=== PATIENT | female | born 1980 | race Caucasian/White ===

== ENCOUNTER 2023-05-27 13:19 | Inpatient (IN) | payer OTHER, SELFPAY ==
--- NOTE | 2023-05-27 | ECG_ITS ---
Test Reason : MED CLEARANCE Blood Pressure : / mmHG Vent. Rate : 059 BPM Atrial Rate : 059 BPM P-R Int : 142 ms QRS Dur : 078 ms QT Int : 428 ms P-R-T Axes : 080 058 042 degrees QTc Int : 423 ms Sinus bradycardia Possible Left atrial enlargement Borderline ECG No previous ECGs available Referred By: Connie Ferris Electronically Signed By:JALEN MUNOZ
--- NOTE | 2023-05-27 13:26 | ED_ITS ---
HPI - General Adult General Chief complaint: Psychiatric Symptoms Stated complaint: Mental crisis Time Seen by Provider: 05/27/23 17:39 Source: patient Mode of arrival: ambulatory Limitations: no limitations History of Present Illness HPI narrative: Patient is a 42 year old female who presents emergency department reporting increased anxiety. She has not been taking her medications for many months now. She feels as though she requires inpatient treatment at this time. She reports increased stressors, she is currently homeless and does not have anywhere to go. Patient's son was present during initial evaluation who expressed concerns that she had been responding to internal stimuli, she denies to me any auditory or visual hallucinations. She denies any suicidal or homicidal ideations. She is calm and cooperative. Denies any physical complaints. Related Data Home Medications Medication Instructions Recorded Confirmed No Known Home Meds 05/27/23 05/27/23 Allergies Allergy/AdvReac Type Severity Reaction Status Date / Time penicillin V Allergy Unknown Rash Verified 05/27/23 13:26 Review of Systems 2 Review of Systems: Yes all other systems are reviewed and are negative PMFSH Past Medical History Attestation statement: The following information was validated with the patient. Source: old records reviewed Social History Social History Advance Directives: No Advance Directives Information Provided: No Healthcare Proxy: No Guardian: Yes Physical Exam ED Vital Signs: Vital Signs - 24 hr 05/27/23 13:27 05/27/23 18:44 Temperature 97.9 F Pulse Rate 91 Respiratory Rate 18 16 Blood Pressure 143/76 H Pulse Oximetry 98 Oxygen Delivery Method Room Air BMI result Body Mass Index 28.5 Appearance: Alert.?Oriented to person, place and time. No acute distress.?Normal affect. Eyes: Pupils equal, round and reactive to light.? ENT: Pharynx normal.?? Neck: Normal inspection.? Neck supple.?? CVS: Heart sounds normal. Normal heart rate and rhythm.? Pulses normal.?? Respiratory: No respiratory distress.? Lung sounds clear to auscultation bilaterally?? Abdomen: Soft and non-tender. Normoactive bowel sounds. Skin: Skin warm and dry.? Normal skin color.? ?? Extremities: No lower extremity edema.? Neuro: Moves all extremities spontaneously. Sensation intact bilaterally. CN II- XII intact. No focal neuro deficits. Ambulates with normal steady gait. Course Course Course Narrative: This is a rapid medical exam: Additional HPI, ROS, PE not included below will be deferred to primary provider. Patient is a 42-year-old female with history of bipolar and schizophrenia presenting to the emergency department with complaint of anxiety. States has been off her medications for the past few months. Patient denies suicidal or homicidal ideation. Patient denies auditory or visual hallucinations. Son states that she is looking for inpatient treatment. Son states that patient has been responding to internal stimuli. He states that patient is currently homeless, he paid for her to stay at a hotel but only had enough for 3 nights. Reevaluation(s) Reevaluation #1: CBC is without leukocytosis or anemia. CMP is overall unremarkable, random glucose of 320, urinalysis revealing glucosuria and trace ketones, also consistent with urinary tract infection. will add on A1c, and treat UTI with cefuroxime Time: 19:16 Reevaluation #2: A1c 8.8, will initiate metformin 500 mg by mouth twice daily, new onset TYpe 2 DM. Patient was evaluated by CARE team who at this time recommends inpatient psych bed search. She is placed in physician observation so the bed search can ensue. She is calm and cooperative. No acute distress. Vitals are stable. Time: 20:33 Medications Administered Generic Name Dose Route Start Last Admin Trade Name Freq PRN Reason Stop Dose Admin Cefuroxime Axetil 250 mg 05/27/23 21:00 05/27/23 21:08 Cefuroxime Axetil 250 Mg Tablet PO 06/03/23 09:01 250 mg BID GREGORIO Administration Metformin HCl 500 mg 05/27/23 21:00 05/27/23 21:08 Metformin Hcl 500 Mg Tablet PO 500 mg BID GREGORIO Administration Medical Decision Making Medical Decision Making MDM Narrative: Patient is a 42 old female who presents to the emergency department with increasing anxiety as per HPI. At the time my examination she is calm and cooperative. No physical complaints and her physical examination is benign. She has not been taking her medications for many months. Plan to obtain basic labs for medical clearance and refer to care team for further evaluation and determination as to whether inpatient psychiatric services are warranted at this time. Differential Diagnosis Differential Diagnoses: The differential diagnosis associated with the presentation includes (Anxiety, depression, substance use disorder) Admission/Observation Consideration of admission/observation: Escalation of care including admission/observation considered (See narrative above) Consult Healthcare Provider Management of the patient was discussed with: Behavioral Health Provider (CARE team) Lab Data MDM Lab Attestation statement: I reviewed the patient's lab results. 05/27/23 18:37 05/27/23 18:37 Labs: Lab Results 05/27/23 05/27/23 05/27/23 Range/Units 18:04 18:37 20:55 WBC 10.1 (4.8-10.8) X10*3/uL RBC 5.08 (4.20-5.50) X10*6/uL Hgb 14.9 (12.0-16.0) g/dl Hct 44.5 (37.0-47.0) % MCV 87.6 (80.0-98.0) fL MCH 29.3 (27.0-33.0) pg MCHC 33.5 (31.0-35.0) g/dl RDW 12.3 (11.0-16.0) % Plt Count 340 (160-400) X10*3/uL MPV 9.7 (9.4-12.3) fL Immature Gran % (Auto) 0.2 (0.0-0.4) % Neut % (Auto) 55.0 (45-73) % Lymph % (Auto) 38.1 (20-40) % [place] % (Auto) 4.9 (2-11) % Eos % (Auto) 1.1 (0-4) % Baso % (Auto) 0.7 (0-2) % Lymph # (Auto) 3.9 (1.2-4.9) X10*3/uL [place] # (Auto) 0.5 (0.1-1.2) X10*3/uL Eos # (Auto) 0.1 (0.0-0.4) X10*3/uL Baso # (Auto) 0.1 (0.0-0.2) X10*3/uL Abs Immat Gran (auto) 0.02 (0.00-0.03) X10*3/uL Absolute Neuts (auto) 5.6 (2.0-8.3) x10*3/uL Absolute Nucleated RBC 0.000 (0.0-0.012) X10*3/uL Nucleated RBC % (auto) 0.0 (0.0-0.2) /100WBC Sodium 138 (135-145) mmol/L Potassium 3.9 (3.3-5.1) mmol/L Chloride 101 (96-108) mmol/L Carbon Dioxide 27 (22-29) mmol/L Anion Gap 14 (12-20) BUN 11 (9-16) mg/dL Creatinine 0.77 (0.5-1.4) mg/dL Estim Creat Clear Calc 85.9 Estimated GFR > 60 Random Glucose 320 H (60-115) mg/dL Estimat Average Glucose 206 mg/dL Hemoglobin A1c % 8.8 H (<6.0) % Calcium 9.6 (8.4-10.2) mg/dL Total Bilirubin 0.1 (0.0-1.0) mg/dL AST 10 (5-31) U/L ALT 8 (0-31) U/L Alkaline Phosphatase 98 (39-117) U/L Total Protein 8.2 H (6.5-8.0) g/dL Albumin 4.4 (3.5-5.0) g/dL Urine Color Yellow Urine Appearance Clear Urine pH 6.0 (5.0-9.0) Ur Specific [place] >= 1.030 H (1.005-1.025) Urine Protein Negative (Neg-Trace) mg/dL Urine Glucose (UA) >=1000 H (Negative) mg/dL Urine Ketones Trace (Negative) mg/dL Urine Blood Negative (Negative) Urine Nitrite Positive H (Negative) Ur Leukocyte Esterase Trace H (Negative) Urine RBC 0-2 (0-2) /HPF Urine WBC >50 H (0-5) /HPF Ur Squamous Epith Cells 0-2 (0-2) /HPF Urine Bacteria 4+ (None Seen) Hyaline Casts 0-2 (0-2) /LPF Urine Test NEGATIVE (NEGATIVE) Salicylates < 5.0 L (15-30) mg/dL Urine Opiates Screen Not Detected (Not Detect) Urine Fentanyl Screen Not Detected (Not Detect) Acetaminophen < 3 (<30) mcg/mL Ur Barbiturates Screen Not Detected (Not Detect) Ur Phencyclidine Scrn Not Detected (Not Detect) Ur Amphetamines Screen Not Detected (Not Detect) U Benzodiazepines Scrn Not Detected (Not Detect) Urine Cocaine Screen POSITIVE H (Not Detect) U Marijuana (THC) Screen POSITIVE H (Not Detect) Ethyl Alcohol < 10 mg/dL COVID-19 (SHANITA) Negative (Negative) COVID-19 Clin Com See Note Social Determinants Patient?s care significantly limited by Social Determinants of Health including: Inadequate housing and Other Social Determinant of Health Discharge Plan Discharge Clinical Impression: Acute anxiety, Urinary tract infection, Type 2 diabetes mellitus Patient Disposition: Still a Patient Interventions: [place]-Suicide Risk Severity Scale Last Done: 05/27/23 18:44 Admission Worksheet (ED) Last Done: 05/28/23 00:00
[2023-05-27 13:27] VITALS: BP 143/76; PULSE 91; RESP 18; TEMP 36.6; O2SAT 98; BMI 28.5
--- NOTE | 2023-05-27 18:02 | PC.NURSE ---
PT experiencing anxiety in community and self presented to emergency dept. PT does not appear anxious. Watching TV, requesting food. Agreeable to filter changer. Reports she is homeless and doesn't have anyplace to go. Per triage note son reports she has been responding to internal stimuli. PT currently denies any AH/VH and does not appear to be responding to any stimuli, PT also denies SI/HI. Labs pending.
[2023-05-27 18:21] LABS: Appearance Urine Clear; Color Urine Yellow; Glucose Urine UA >=1000 mg/dL (Negative); Leukocyte Esterase Urine Trace (Negative); Nitrite Urine Positive (Negative); Specific Gravity - Urine >= 1.030 (1.005-1.025); UMIC TRIGGER UACC YES; Urine Blood Negative (Negative); Urine Ketones Trace mg/dL (Negative); Urine Protein Negative (Neg-Trace)
[2023-05-27 18:22] LABS: UPreg QC Valid YES; Urine Pregnancy NEGATIVE (NEGATIVE)
[2023-05-27 18:24] LABS: Bacteria Urine 4+ (None Seen); Hyaline Casts Urine 0-2 /LPF (0-2); RBC Urine 0-2 /HPF (0-2); Squamous Epithelial Cell Urine 0-2 /HPF (0-2); UACC Culture Trigger YES; WBC Urine >50 /HPF (0-5)
[2023-05-27 18:27] LABS: Amphetamine Screen Urine Not Detected (Not Detect); Barbiturates, Urine Not Detected (Not Detect); Benzodiazepines Screen Urine Not Detected (Not Detect); Cannabinoid Screen Urine POSITIVE (Not Detect); Cocaine Screen Urine POSITIVE (Not Detect); Fentanyl, urine Not Detected (Not Detect); Opiate Screen Urine Not Detected (Not Detect); Phencyclidine Screen Urine Not Detected (Not Detect)
[2023-05-27 18:42] LABS: MANUAL DIFF FLAG NO
[2023-05-27 18:44] VITALS: RESP 16
[2023-05-27 18:44] LABS: Basophils Absolute Auto 0.1 X10*3/uL (0.0-0.2); Basophils Percent Auto 0.7 % (0-2); Eosinophils Absolute Auto 0.1 X10*3/uL (0.0-0.4); Eosinophils Percent Auto 1.1 % (0-4); Hematocrit 44.5 % (37.0-47.0); Hemoglobin 14.9 g/dl (12.0-16.0); Imm Gran Abs Auto 0.02 X10*3/uL (0.00-0.03); Imm Gran Pct Auto 0.2 % (0.0-0.4); Lymphocytes Absolute Auto 3.9 X10*3/uL (1.2-4.9); Lymphocytes Percent Auto 38.1 % (20-40); Mean Corpuscular HGB Conc 33.5 g/dl (31.0-35.0); Mean Corpuscular Hemoglobin 29.3 pg (27.0-33.0); Mean Corpuscular Volume 87.6 fL (80.0-98.0); Mean Platelet Volume 9.7 fL (9.4-12.3); Monocytes Absolute Auto 0.5 X10*3/uL (0.1-1.2); Monocytes Percent Auto 4.9 % (2-11); Neutrophils Absolute Auto 5.6 x10*3/uL (2.0-8.3); Platelet Count 340 X10*3/uL (160-400); Red Blood Count 5.08 X10*6/uL (4.20-5.50); Red Cell Distribution Width 12.3 % (11.0-16.0); White Blood Count 10.1 X10*3/uL (4.8-10.8)
[2023-05-27 19:01] LABS: Acetaminophen LAB < 3 mcg/mL (<30); Salicylate < 5.0 mg/dL (15-30)
[2023-05-27 19:08] LABS: Alanine Aminotransferase 8 U/L (0-31); Albumin Level 4.4 g/dL (3.5-5.0); Alkaline Phosphatase 98 U/L (39-117); Anion Gap 14 (12-20); Aspartate Amino Transferase 10 U/L (5-31); Bilirubin Total 0.1 mg/dL (0.0-1.0); Blood Urea Nitrogen 11 mg/dL (9-16); Calcium 9.6 mg/dL (8.4-10.2); Carbon Dioxide 27 mmol/L (22-29); Chloride 101 mmol/L (96-108); Creatinine Clr Calc Pharmacy 85.9; Estimated Glomerular Filt Rate > 60; Ethanol < 10 mg/dL; Glucose Random 320 mg/dL (60-115); Potassium 3.9 mmol/L (3.3-5.1); Sodium 138 mmol/L (135-145); Total Protein 8.2 g/dL (6.5-8.0)
[2023-05-27 19:51] LABS: Estimated Average Glucose 206 mg/dL; Hemoglobin A1c % 8.8 % (<6.0)
--- NOTE | 2023-05-27 20:08 | PC.NURSE ---
Assumed care of pt. CARE team at bedside on this RN arrival to unit, pt calm and cooperative during conversation. No acute distress noted at this time. Continuing plan of care.
[2023-05-27] MEDS: metFORMIN HCl 500 MG TABLET PO (21:08)
[2023-05-27] MEDS: cefuroxime axetiL 250 MG TABLET PO (21:08)
[2023-05-27 21:13] LABS: COVID-19 Test Negative (Negative); IDNOW Serial# 08D9AD1C
--- NOTE | 2023-05-27 23:18 | PC.NURSE ---
Pt remains lying on stretcher, eyes closed, respirations even and unlabored, no acute distress. Continuing plan of care.
[2023-05-28 01:00] VITALS: BP 118/73; PULSE 56; RESP 18; TEMP 36.6; O2SAT 96
[2023-05-28] MEDS: Acetaminophen 325 MG TABLET 650 MG PO (01:36)
[2023-05-28] MEDS: hydrOXYzine HCL 25 MG TABLET PO ×2 (01:36→20:15)
[2023-05-28 02:01] VITALS: BMI 28.3
[2023-05-28] MEDS: Nicotine Polacrilex 2 MG GUM 4 MG BUCCAL ×2 (02:17→12:16)
--- NOTE | 2023-05-28 03:18 | PC.ADMIT ---
Patient is a 42 year old female admitted to from [facility] on 05/28/23 at 0100 on a CV for increased anxiety. She reports having one prior inpatient hospitalization on in 2004. Patient has been homeless for the past seven months. She has also been noncompliant with medication during that time. Patient reports using crack/cocaine at times. Patient is a current everyday smoker, reports smoking 3-5 cigarettes per day. Denies alcohol use. Patient toxicology positive for cocaine and THC. Patient also tested positive for UTI for which she is receiving ceftin. Upon arrival to the unit, patient alert and oriented to person and place, but believed she was at [facility]. Patient cooperative with admission process, skin and contraband check completed, EMIGDIO's signed. Coperative throughout admission process.Patient denies SI/HI/AH/VH, she appears to be responding to internal stimuli. Patient is denying flu shot at this time.
[2023-05-28 06:00] VITALS: BP 131/62; PULSE 62; RESP 18; O2SAT 99
[2023-05-28] MEDS: cefuroxime axetiL 250 MG TABLET PO ×2 (08:34→20:15)
[2023-05-28] MEDS: metFORMIN HCl 500 MG TABLET PO ×2 (08:34→20:15)
[2023-05-28 09:15] LABS: Estimated Average Glucose 209 mg/dL; Hemoglobin A1c % 8.9 % (<6.0)
[2023-05-28 09:16] LABS: Cholesterol 197 mg/dL (<200); HDL Cholesterol 34 mg/dL (>40); LDL Cholesterol Calculated 115 mg/dL (<100); Triglycerides 243 mg/dL (<150)
[2023-05-28 16:14] VITALS: BP 123/69; PULSE 70; TEMP 36.9; O2SAT 96
--- NOTE | 2023-05-28 17:18 | P.HPPS_ITS ---
HPI Date of Service: 05/28/23 Chief Complaint: Psychosis/agitation Sources of Information: patient interviewed, chart reviewed and crisis/core team assessment reviewed HPI Subjective Notes: Chow Warning and Conditional Voluntary Healthcare Proxy: No Guardianship: Yes (Robertson in place. Expires 06/30/23) Medical Problems Affecting Mental Status: No Narrative: 42 yo female, history of bipolar disorder with psychosis, who reportedly has been missing for the past seven months. Son reports pt had a break and just walked away from her life, including Section 8 housing, [facility], OP Providers. She has been homeless and on the street. She exhibits pressure of speech, perceptual alterations and anxiety. She reports crack/cocaine use. Possible precipitants- 9 yo son removed by DCF Pt reports she has a Robertson, she believes she was taking a mood stabilizer, abilify and cogentin. She agrees to re-start a regime. She will consider a vitamin regime as well A1c 8.8 Glucose 320 She is unsure if there is a DM history Past Psychiatric History: IP: Reports - [place] [facility] [place] connected Trials: Invega, Trileptal, Abilify Aik's order- expires 06/30/23-Invega to 12 mg daily, Abilify to 30 mg daily; Alternatives: Sustenna to 234 mg q 4 weeks, Haldol to 30 mg day or 300 mg decanoate every 4 weeks. Medical Evaluation Reviewed: Yes [facility] Medical History (Updated 05/29/23 @ 18:58 by Sonia Song, SENIOR MECHANICAL PROJECT ENGINEER) Cocaine use disorder Schizoaffective disorder, bipolar type Narrative: DM Family History: Yes, I think so Social History: Homeless Two sons, age 24 and 9-who is with his father Substance History: Cocaine use for 7 months, Cannabis Trauma History: Affirms Diagnostics Vital Signs (24Hr): Vital Signs - 24 hr 05/27/23 18:44 05/28/23 01:00 05/28/23 06:00 Temperature 97.8 F Pulse Rate 56 62 Respiratory Rate 16 18 18 Blood Pressure 118/73 131/62 Pulse Oximetry 96 99 Oxygen Delivery Method Room Air Room Air 05/28/23 16:14 Temperature 98.5 F Pulse Rate 70 Respiratory Rate Blood Pressure 123/69 Pulse Oximetry 96 Oxygen Delivery Method Room Air BMI result Body Mass Index 28.3 Labs 05/27/23 18:37 05/27/23 18:37 Labs: Laboratory Results - last 48 hr 05/27/23 05/27/23 05/27/23 18:04 18:37 20:55 WBC 10.1 RBC 5.08 Hgb 14.9 Hct 44.5 MCV 87.6 MCH 29.3 MCHC 33.5 RDW 12.3 Plt Count 340 MPV 9.7 Immature Gran % (Auto) 0.2 Neut % (Auto) 55.0 Lymph % (Auto) 38.1 [place] % (Auto) 4.9 Eos % (Auto) 1.1 Baso % (Auto) 0.7 Lymph # (Auto) 3.9 [place] # (Auto) 0.5 Eos # (Auto) 0.1 Baso # (Auto) 0.1 Abs Immat Gran (auto) 0.02 Absolute Neuts (auto) 5.6 Absolute Nucleated RBC 0.000 Nucleated RBC % (auto) 0.0 Sodium 138 Potassium 3.9 Chloride 101 Carbon Dioxide 27 Anion Gap 14 BUN 11 Creatinine 0.77 Estim Creat Clear Calc 85.9 Estimated GFR > 60 Random Glucose 320 H Estimat Average Glucose 206 Hemoglobin A1c % 8.8 H Calcium 9.6 Total Bilirubin 0.1 AST 10 ALT 8 Alkaline Phosphatase 98 Total Protein 8.2 H Albumin 4.4 Triglycerides Cholesterol LDL Cholesterol, Calc HDL Cholesterol Urine Color Yellow Urine Appearance Clear Urine pH 6.0 Ur Specific [place] >= 1.030 H Urine Protein Negative Urine Glucose (UA) >=1000 H Urine Ketones Trace Urine Blood Negative Urine Nitrite Positive H Ur Leukocyte Esterase Trace H Urine RBC 0-2 Urine WBC >50 H Ur Squamous Epith Cells 0-2 Urine Bacteria 4+ Hyaline Casts 0-2 Urine Test NEGATIVE Salicylates < 5.0 L Urine Opiates Screen Not Detected Urine Fentanyl Screen Not Detected Acetaminophen < 3 Ur Barbiturates Screen Not Detected Ur Phencyclidine Scrn Not Detected Ur Amphetamines Screen Not Detected U Benzodiazepines Scrn Not Detected Urine Cocaine Screen POSITIVE H U Marijuana (THC) Screen POSITIVE H Ethyl Alcohol < 10 COVID-19 (SHANITA) Negative COVID-19 Clin Com See Note 05/28/23 08:33 WBC RBC Hgb Hct MCV MCH MCHC RDW Plt Count MPV Immature Gran % (Auto) Neut % (Auto) Lymph % (Auto) [place] % (Auto) Eos % (Auto) Baso % (Auto) Lymph # (Auto) [place] # (Auto) Eos # (Auto) Baso # (Auto) Abs Immat Gran (auto) Absolute Neuts (auto) Absolute Nucleated RBC Nucleated RBC % (auto) Sodium Potassium Chloride Carbon Dioxide Anion Gap BUN Creatinine Estim Creat Clear Calc Estimated GFR Random Glucose Estimat Average Glucose 209 Hemoglobin A1c % 8.9 H Calcium Total Bilirubin AST ALT Alkaline Phosphatase Total Protein Albumin Triglycerides 243 H Cholesterol 197 LDL Cholesterol, Calc 115 H HDL Cholesterol 34 L Urine Color Urine Appearance Urine pH Ur Specific [place] Urine Protein Urine Glucose (UA) Urine Ketones Urine Blood Urine Nitrite Ur Leukocyte Esterase Urine RBC Urine WBC Ur Squamous Epith Cells Urine Bacteria Hyaline Casts Urine Test Salicylates Urine Opiates Screen Urine Fentanyl Screen Acetaminophen Ur Barbiturates Screen Ur Phencyclidine Scrn Ur Amphetamines Screen U Benzodiazepines Scrn Urine Cocaine Screen U Marijuana (THC) Screen Ethyl Alcohol COVID-19 (SHANITA) COVID-19 Clin Com Meds/Allergies Meds Home Medications Medication Instructions Recorded Confirmed Type No Known Home Meds 05/27/23 05/27/23 History Allergies Allergies Allergy/AdvReac Type Severity Reaction Status Date / Time penicillin V Allergy Unknown Rash Verified 05/27/23 13:26 Mental Status Exam Mental Status Exam Patient Appearance: Fatigued and Disheveled Patient Orientation: Person, Place (?Prov) and Situation Level of Consciousness: Sedated Patient Behavior: Talkative, Fatigued, Distractible and Good Eye Contact Mood Description: Flat Affect Description: Flat Patient Cognition Impaired: No Ability to Follow Directions: Fair Speech Pattern: Spontaneous Speech Memory Description: Remote Impaired Hallucinations: Auditory Delusions: Paranoid Ideation and Present Perceptual Disturbances: Depersonalization and Derealization Thought Process: Distracted and Rumination Thought Content: positive for Circumstantial, positive for Tangential and positive for Suicidal Ideation ( I wish ) Depressive Symptoms: Increased Anxiety, Feelings of Worthlessness, Hopelessness, Unhappiness, Increased Fatigue, Thoughts of /Suicide and Low Self Esteem Judgement: Poor Assessment & Plan Assessment & Plan (1) Schizoaffective disorder, bipolar type: Status: Acute Code(s): F25.0 - Schizoaffective disorder, bipolar type (2) Cocaine use disorder: Status: Acute Code(s): F14.10 - Cocaine abuse, uncomplicated (3) Type 2 diabetes mellitus: Status: Acute Code(s): E11.9 - Type 2 diabetes mellitus without complications Plan 42 yo female, hx of schizoaffective disorder, bipolar type, missing from the community for ~7 months, recently found by her son who brought her to the ER for evaluation. Pt is agreeable to re-start treatment, has a Robertson order for meds and is wanting to stop cocaine, which she has been using for the past 6.5-7 months. Pt responding to internal stimuli, believes she is in [facility] and today is a weak historian. Plan: Re-establish regime-Abilify, Invega Collateral contact [place] building Aftercare planning. Patient educated on: medication risk/benefits and therapeutic strategies Informed Consent: understands and further education needed Reason for continued inpatient stay Substantial Risk for: rapid decompensation Statement Statement: I have reviewed the history and physical and performed a pertinent examination on my patient. No changes have occurred unless specified. If the History and Physical was not performed prior to admission, the Hospitalist's service will be consulted for completing the admission physical. Time Spent With Patient Time: Total time managing care of this patient today ____ minutes.
[2023-05-28] MEDS: OLANZapine 5 MG TABLET PO (20:15)
[2023-05-28] MEDS: traZODone HCL 50 MG TABLET PO (20:16)
[2023-05-29 07:55] VITALS: BP 104/51; PULSE 70; RESP 16; TEMP 37; O2SAT 97
[2023-05-29] MEDS: metFORMIN HCl 500 MG TABLET PO ×2 (09:05→20:24)
[2023-05-29] MEDS: ARIPiprazole 5 MG TABLET PO (09:05)
[2023-05-29] MEDS: cefuroxime axetiL 250 MG TABLET PO ×2 (09:05→20:24)
[2023-05-29] MEDS: Paliperidone ER 3 MG TAB.ER.24 PO (09:05)
[2023-05-29 16:16] VITALS: BP 128/64; PULSE 80; TEMP 36.3; O2SAT 96
--- NOTE | 2023-05-29 19:02 | HO.PSYCHPN ---
Subjective Subjective Date of Service: 05/29/23 Reason For Visit: Psychosis/agitation Subjective Notes: Conditional Voluntary Healthcare Proxy: No Guardianship: Yes Medical Problems Affecting Mental Status: No Interim History: Pt reports she is OK . She remains in bed, a poor historian. States she is tolerating medications without adverse effects. Reports exhaustion and needing to sleep. Agrees to a vitamin regime. Asks tw, why is everyone so nice to me, I feel like nothing. Attempted to offer support and encouragement-pt tearful. Medication Compliance: Yes Side effects from medications: No Attending Groups: No Review of Systems Acute medical concerns: No Medical Review of Systems: unchanged Review of Systems Review of Systems Yes Unobtainable due to mental status Mental Status Exam Mental Status Exam Patient Appearance: Fatigued and Disheveled Patient Orientation: Person, Place (?Prov) and Situation Level of Consciousness: Sedated Patient Behavior: Talkative, Fatigued, Distractible and Good Eye Contact Mood Description: Flat Affect Description: Flat Patient Cognition Impaired: No Ability to Follow Directions: Fair Speech Pattern: Spontaneous Speech Memory Description: Remote Impaired Hallucinations: Auditory Delusions: Paranoid Ideation and Present Perceptual Disturbances: Depersonalization and Derealization Thought Process: Distracted and Rumination Thought Content: positive for Circumstantial, positive for Tangential and positive for Suicidal Ideation ( I wish ) Depressive Symptoms: Increased Anxiety, Feelings of Worthlessness, Hopelessness, Unhappiness, Increased Fatigue, Thoughts of /Suicide and Low Self Esteem Judgement: Poor Diagnostics Vital Signs (24Hr): Vital Signs - 24 hr 05/29/23 07:55 05/29/23 16:16 Temperature 98.6 F 97.3 F Pulse Rate 70 80 Respiratory Rate 16 Blood Pressure 104/51 L 128/64 Pulse Oximetry 97 96 Oxygen Delivery Method Room Air Room Air BMI result Body Mass Index 28.3 Labs 05/27/23 18:37 05/27/23 18:37 Labs: Laboratory Results - last 48 hr 05/27/23 05/27/23 05/28/23 18:37 20:55 08:33 Sodium 138 Potassium 3.9 Chloride 101 Carbon Dioxide 27 Anion Gap 14 BUN 11 Creatinine 0.77 Estim Creat Clear Calc 85.9 Estimated GFR > 60 Random Glucose 320 H Estimat Average Glucose 206 209 Hemoglobin A1c % 8.8 H 8.9 H Calcium 9.6 Total Bilirubin 0.1 AST 10 ALT 8 Alkaline Phosphatase 98 Total Protein 8.2 H Albumin 4.4 Triglycerides 243 H Cholesterol 197 LDL Cholesterol, Calc 115 H HDL Cholesterol 34 L Ethyl Alcohol < 10 COVID-19 (SHANITA) Negative COVID-19 Clin Com See Note Medications Medications Current Medications Acetaminophen (Acetaminophen 325 Mg Tablet) 650 mg PO Q6H PRN PRN Reason: Headache/Pain Mild Scale (1-3) Last Admin: 05/28/23 01:36 Dose: 650 mg Al Hydroxide/Mg Hydroxide (Magnesium Hydrox/Alum Hydrox 30 Ml Oral.Susp) 30 ml PO Q6H PRN PRN Reason: Heartburn/Nausea Aripiprazole (Aripiprazole 5 Mg Tablet) 5 mg PO DAILY [facility] Last Admin: 05/29/23 09:05 Dose: 5 mg Cefuroxime Axetil (Cefuroxime Axetil 250 Mg Tablet) 250 mg PO BID [facility] Stop: 06/03/23 09:01 Last Admin: 05/29/23 09:05 Dose: 250 mg Hydroxyzine HCl (Hydroxyzine Hcl 25 Mg Tablet) 25 mg PO Q6H PRN PRN Reason: Anxiety Last Admin: 05/28/23 20:15 Dose: 25 mg Magnesium Hydroxide (Milk Of Magnesia 30 Ml Oral.Susp) 30 ml PO DAILY PRN PRN Reason: Constipation Metformin HCl (Metformin Hcl 500 Mg Tablet) 500 mg PO BID [facility] Last Admin: 05/29/23 09:05 Dose: 500 mg Nicotine (Nicotine 21 Mg Patch.Td24) 21 mg TRANSDERMA DAILY PRN PRN Reason: smoking cessation Nicotine Polacrilex (Nicotine Polacrilex 2 Mg Gum) 4 mg BUCCAL Q2H PRN PRN Reason: Nicotine Cravings Last Admin: 05/28/23 12:16 Dose: 4 mg Olanzapine (Olanzapine 5 Mg Tablet) 5 mg PO TID PRN PRN Reason: Restlessness Last Admin: 05/28/23 20:15 Dose: 5 mg Paliperidone (Paliperidone Er 3 Mg Tab.Er.24) 3 mg PO DAILY [facility] Last Admin: 05/29/23 09:05 Dose: 3 mg Trazodone HCl (Trazodone Hcl 50 Mg Tablet) 50 mg PO BEDTIME MRX1 PRN PRN Reason: Insomnia Last Admin: 05/28/23 20:16 Dose: 50 mg Allergies Allergies Allergy/AdvReac Type Severity Reaction Status Date / Time penicillin V Allergy Unknown Rash Verified 05/27/23 13:26 Assessment & Plan Assessment & Plan (1) Schizoaffective disorder, bipolar type: Status: Acute Code(s): F25.0 - Schizoaffective disorder, bipolar type (2) Cocaine use disorder: Status: Acute Code(s): F14.10 - Cocaine abuse, uncomplicated (3) Type 2 diabetes mellitus: Status: Acute Code(s): E11.9 - Type 2 diabetes mellitus without complications Plan 42 yo female, hx of schizoaffective disorder, bipolar type, missing from the community for ~7 months, recently found by her son who brought her to the ER for evaluation. Pt is agreeable to re-start treatment, has a Robertson order for meds and is wanting to stop cocaine, which she has been using for the past 6.5-7 months. Pt responding to internal stimuli, believes she is in [facility] and today is a weak historian. Plan: Re-establish regime-Abilify, Invega Collateral contact [place] building Aftercare planning. 05/29/23 MVI B12 Vitamin D Trileptal 300 mg bid Patient educated on: medication risk/benefits Informed Consent: understands and further education needed Reason for continued inpatient stay Substantial Risk for: rapid decompensation and med/psych decompensation Time Spent With Patient Time: Total time managing care of this patient today ____ minutes.
[2023-05-29] MEDS: OXcarbazepine 300 MG TABLET PO (20:24)
[2023-05-29] MEDS: traZODone HCL 50 MG TABLET PO (20:24)
[2023-05-29] MEDS: hydrOXYzine HCL 25 MG TABLET PO (20:24)
[2023-05-29] MEDS: OLANZapine 5 MG TABLET PO (20:24)
[2023-05-30 06:00] VITALS: BP 115/60; PULSE 63; RESP 16; TEMP 37.8; O2SAT 97
[2023-05-30] MEDS: metFORMIN HCl 500 MG TABLET PO ×2 (08:28→22:07)
[2023-05-30] MEDS: OXcarbazepine 300 MG TABLET PO ×2 (08:28→22:07)
[2023-05-30] MEDS: Thiamine HCL 100 MG TABLET PO (08:28)
[2023-05-30] MEDS: Paliperidone ER 3 MG TAB.ER.24 PO (08:28)
[2023-05-30] MEDS: ARIPiprazole 5 MG TABLET PO (08:28)
[2023-05-30] MEDS: Multivitamin TABLET 1 TAB PO (08:28)
[2023-05-30] MEDS: Cholecalciferol (Vitamin D3) 10 MCG TABLET 20 MCG PO (08:28)
[2023-05-30] MEDS: cefuroxime axetiL 250 MG TABLET PO ×2 (08:30→22:07)
--- NOTE | 2023-05-30 09:51 | HO.PSYCHPN ---
Subjective Subjective Date of Service: 05/30/23 Reason For Visit: Psychosis/agitation Subjective Notes: Conditional Voluntary Interim History: Reviewed with . Patient reports feeling fine today. Patient stated, I just want a cigarette. I'm happy I'm getting off drugs. I don't need anything else right now . denies SI/HI/VH.AH. Medication Compliance: Yes Side effects from medications: No Review of Systems Constitutional: Reports as per HPI Eyes: Reports as per HPI Reports as per HPI Cardiovascular: Reports as per HPI Respiratory: Reports as per HPI Gastrointestinal: Reports as per HPI Genitourinary: Reports as per HPI Musculoskeletal: Reports as per HPI Skin/Breast: Reports as per HPI Reports as per HPI Psychiatric: Reports as per HPI Endocrine: Reports as per HPI Hematologic/Lymphatic: Reports as per HPI Allergic/Immunologic: Reports as per HPI Mental Status Exam Mental Status Exam Narrative: Pt is alert and oriented; behavior is cooperative and calm; dressed in casual attire; mood is described as fine ; eye contact appropriate; Speech is normal rate, volume and prosody and not pressured; thought process is organized; Thought content is on tx; denies SI/HI. There is no evidence of perceptual disturbance. Diagnostics Vital Signs (24Hr): Vital Signs - 24 hr 05/29/23 16:16 05/30/23 06:00 Temperature 97.3 F 100.1 F Pulse Rate 80 63 Respiratory Rate 16 Blood Pressure 128/64 115/60 Pulse Oximetry 96 97 Oxygen Delivery Method Room Air Room Air BMI result Body Mass Index 28.3 Labs 05/27/23 18:37 05/27/23 18:37 Medications Medications Current Medications Acetaminophen (Acetaminophen 325 Mg Tablet) 650 mg PO Q6H PRN PRN Reason: Headache/Pain Mild Scale (1-3) Last Admin: 05/28/23 01:36 Dose: 650 mg Al Hydroxide/Mg Hydroxide (Magnesium Hydrox/Alum Hydrox 30 Ml Oral.Susp) 30 ml PO Q6H PRN PRN Reason: Heartburn/Nausea Aripiprazole (Aripiprazole 5 Mg Tablet) 5 mg PO DAILY [facility] Last Admin: 05/30/23 08:28 Dose: 5 mg Cefuroxime Axetil (Cefuroxime Axetil 250 Mg Tablet) 250 mg PO BID [facility] Stop: 06/03/23 09:01 Last Admin: 12/08/23 08:30 Dose: 250 mg Hydroxyzine HCl (Hydroxyzine Hcl 25 Mg Tablet) 25 mg PO Q6H PRN PRN Reason: Anxiety Last Admin: 05/29/23 20:24 Dose: 25 mg Magnesium Hydroxide (Milk Of Magnesia 30 Ml Oral.Susp) 30 ml PO DAILY PRN PRN Reason: Constipation Metformin HCl (Metformin Hcl 500 Mg Tablet) 500 mg PO BID [facility] Last Admin: 05/30/23 08:28 Dose: 500 mg Multivitamins/Vitamin C (Multivitamin Tablet) 1 tab PO DAILY [facility] Last Admin: 05/30/23 08:28 Dose: 1 tab Nicotine (Nicotine 21 Mg Patch.Td24) 21 mg TRANSDERMA DAILY PRN PRN Reason: smoking cessation Nicotine Polacrilex (Nicotine Polacrilex 2 Mg Gum) 4 mg BUCCAL Q2H PRN PRN Reason: Nicotine Cravings Last Admin: 05/28/23 12:16 Dose: 4 mg Olanzapine (Olanzapine 5 Mg Tablet) 5 mg PO TID PRN PRN Reason: Restlessness Last Admin: 05/29/23 20:24 Dose: 5 mg Oxcarbazepine (Oxcarbazepine 300 Mg Tablet) 300 mg PO BID [facility] Last Admin: 05/30/23 08:28 Dose: 300 mg Paliperidone (Paliperidone Er 3 Mg Tab.Er.24) 3 mg PO DAILY [facility] Last Admin: 05/30/23 08:28 Dose: 3 mg Thiamine HCl (Thiamine Hcl 100 Mg Tablet) 100 mg PO DAILY [facility] Last Admin: 05/30/23 08:28 Dose: 100 mg Trazodone HCl (Trazodone Hcl 50 Mg Tablet) 50 mg PO BEDTIME MRX1 PRN PRN Reason: Insomnia Last Admin: 05/29/23 20:24 Dose: 50 mg Vitamin D (Cholecalciferol (Vitamin D3) 10 Mcg Tablet) 20 mcg PO DAILY [facility] Last Admin: 05/30/23 08:28 Dose: 20 mcg Allergies Allergies Allergy/AdvReac Type Severity Reaction Status Date / Time penicillin V Allergy Unknown Rash Verified 05/27/23 13:26 Assessment & Plan Assessment & Plan (1) Schizoaffective disorder, bipolar type: Status: Acute Code(s): F25.0 - Schizoaffective disorder, bipolar type (2) Cocaine use disorder: Status: Acute Code(s): F14.10 - Cocaine abuse, uncomplicated (3) Type 2 diabetes mellitus: Status: Acute Code(s): E11.9 - Type 2 diabetes mellitus without complications Plan 42 yo female, hx of schizoaffective disorder, bipolar type, missing from the community for ~7 months, recently found by her son who brought her to the ER for evaluation. Pt is agreeable to re-start treatment, has a [facility] order for meds and is wanting to stop cocaine, which she has been using for the past 6.5-7 months. Pt responding to internal stimuli, believes she is in [facility] and today is a weak historian. Plan: Re-establish regime-Abilify, Invega Collateral contact [place] building Aftercare planning. 05/29/23 MVI B12 Vitamin D Trileptal 300 mg bid 05/30: Patient reports feeling fine today. Patient stated, I just want a cigarette. I'm happy I'm getting off drugs. I don't need anything else right now . denies SI/HI/VH.AH. Continue current tx plan. Patient educated on: diagnosis, medication risk/benefits and therapeutic strategies Informed Consent: understands Reason for continued inpatient stay Substantial Risk for: med/psych decompensation Time Spent With Patient Time: Total time managing care of this patient today _30___ minutes.
[2023-05-30] MEDS: OLANZapine 5 MG TABLET PO (16:37)
[2023-05-30] MEDS: Acetaminophen 325 MG TABLET 650 MG PO (16:37)
[2023-05-30] MEDS: hydrOXYzine HCL 25 MG TABLET PO (16:38)
[2023-05-30 17:15] VITALS: BP 118/58; PULSE 84; RESP 16; TEMP 37.4; O2SAT 96
[2023-05-30] MEDS: guaiFENesin DM 200/20/10 ML 10 ML SYRUP PO (18:54)
[2023-05-30 19:18] LABS: COVID-19 Test Negative (Negative); IDNOW Serial# BCCEAD1C
[2023-05-30] MEDS: traZODone HCL 50 MG TABLET PO (22:07)
[2023-05-31] MEDS: Nicotine Polacrilex 2 MG GUM 4 MG BUCCAL ×3 (01:58→16:44)
[2023-05-31 08:05] VITALS: BP 129/72; PULSE 80; RESP 18; TEMP 36.5; O2SAT 97
[2023-05-31] MEDS: Multivitamin TABLET 1 TAB PO (08:35)
[2023-05-31] MEDS: Cholecalciferol (Vitamin D3) 10 MCG TABLET 20 MCG PO (08:35)
[2023-05-31] MEDS: Paliperidone ER 3 MG TAB.ER.24 PO (08:35)
[2023-05-31] MEDS: Thiamine HCL 100 MG TABLET PO (08:35)
[2023-05-31] MEDS: ARIPiprazole 5 MG TABLET PO (08:35)
[2023-05-31] MEDS: OXcarbazepine 300 MG TABLET PO ×2 (08:35→20:12)
[2023-05-31] MEDS: cefuroxime axetiL 250 MG TABLET PO ×2 (08:36→20:12)
[2023-05-31] MEDS: metFORMIN HCl 500 MG TABLET PO ×2 (08:36→20:12)
--- NOTE | 2023-05-31 11:09 | P.PNPSI_ITS ---
Subjective Subjective Date of Service: 05/31/23 Reason For Visit: Psychosis/agitation Subjective Notes: Conditional Voluntary Interim History: Patient was seen and discussed in rounds today. Records and plans were reviewed. She continues to be flat and withdrawn but generally doing better. Some auditory hallucinations. Observed to respond to internal stimuli. Eating and sleeping adequately. No changes were made today Review of Systems Review of Systems Yes all other systems are reviewed and are negative Mental Status Exam Mental Status Exam Narrative: In today's visit she is alert, oriented and pleasant. Normal speech. Moderate eye contact. No SI. Possible auditory hallucinations. Thought processes were organized. Judgment is intact Diagnostics Vital Signs (24Hr): Vital Signs - 24 hr 05/30/23 17:15 05/31/23 08:05 Temperature 99.3 F 97.7 F Pulse Rate 84 80 Respiratory Rate 16 18 Blood Pressure 118/58 L 129/72 Pulse Oximetry 96 97 Oxygen Delivery Method Room Air Room Air BMI result Body Mass Index 28.3 Labs 05/27/23 18:37 05/27/23 18:37 Labs: Laboratory Results - last 48 hr 05/30/23 18:40 COVID-19 ([facility]) Negative COVID-19 Clin Com See Note Medications Medications Current Medications Acetaminophen (Acetaminophen 325 Mg Tablet) 650 mg PO Q6H PRN PRN Reason: Headache/Pain Mild Scale (1-3) Last Admin: 05/30/23 16:37 Dose: 650 mg Al Hydroxide/Mg Hydroxide (Magnesium Hydrox/Alum Hydrox 30 Ml Oral.Susp) 30 ml PO Q6H PRN PRN Reason: Heartburn/Nausea Aripiprazole (Aripiprazole 5 Mg Tablet) 5 mg PO DAILY [facility] Last Admin: 05/31/23 08:35 Dose: 5 mg Cefuroxime Axetil (Cefuroxime Axetil 250 Mg Tablet) 250 mg PO BID [facility] Stop: 06/03/23 09:01 Last Admin: 05/31/23 08:36 Dose: 250 mg Guaifenesin/Dextromethorphan (Guaifenesin Dm 200/20/10 Ml 10 Ml Syrup) 10 ml PO Q6H PRN PRN Reason: Cough Last Admin: 05/30/23 18:54 Dose: 10 ml Hydroxyzine HCl (Hydroxyzine Hcl 25 Mg Tablet) 25 mg PO Q6H PRN PRN Reason: Anxiety Last Admin: 05/30/23 16:38 Dose: 25 mg Magnesium Hydroxide (Milk Of Magnesia 30 Ml Oral.Susp) 30 ml PO DAILY PRN PRN Reason: Constipation Metformin HCl (Metformin Hcl 500 Mg Tablet) 500 mg PO BID [facility] Last Admin: 05/31/23 08:36 Dose: 500 mg Multivitamins/Vitamin C (Multivitamin Tablet) 1 tab PO DAILY [facility] Last Admin: 05/31/23 08:35 Dose: 1 tab Nicotine (Nicotine 21 Mg Patch.Td24) 21 mg TRANSDERMA DAILY PRN PRN Reason: smoking cessation Nicotine Polacrilex (Nicotine Polacrilex 2 Mg Gum) 4 mg BUCCAL Q2H PRN PRN Reason: Nicotine Cravings Last Admin: 05/31/23 09:04 Dose: 4 mg Olanzapine (Olanzapine 5 Mg Tablet) 5 mg PO TID PRN PRN Reason: Restlessness Last Admin: 05/30/23 16:37 Dose: 5 mg Oxcarbazepine (Oxcarbazepine 300 Mg Tablet) 300 mg PO BID [facility] Last Admin: 05/31/23 08:35 Dose: 300 mg Paliperidone (Paliperidone Er 3 Mg Tab.Er.24) 3 mg PO DAILY [facility] Last Admin: 05/31/23 08:35 Dose: 3 mg Thiamine HCl (Thiamine Hcl 100 Mg Tablet) 100 mg PO DAILY [facility] Last Admin: 05/31/23 08:35 Dose: 100 mg Trazodone HCl (Trazodone Hcl 50 Mg Tablet) 50 mg PO BEDTIME MRX1 PRN PRN Reason: Insomnia Last Admin: 05/30/23 22:07 Dose: 50 mg Vitamin D (Cholecalciferol (Vitamin D3) 10 Mcg Tablet) 20 mcg PO DAILY [facility] Last Admin: 05/31/23 08:35 Dose: 20 mcg Allergies Allergies Allergy/AdvReac Type Severity Reaction Status Date / Time penicillin V Allergy Unknown Rash Verified 05/27/23 13:26 Assessment & Plan Assessment & Plan (1) Schizoaffective disorder, bipolar type: Status: Acute Code(s): F25.0 - Schizoaffective disorder, bipolar type (2) Cocaine use disorder: Status: Acute Code(s): F14.10 - Cocaine abuse, uncomplicated (3) Type 2 diabetes mellitus: Status: Acute Code(s): E11.9 - Type 2 diabetes mellitus without complications Plan 42 yo female, hx of schizoaffective disorder, bipolar type, missing from the community for ~7 months, recently found by her son who brought her to the ER for evaluation. Pt is agreeable to re-start treatment, has a [facility] order for meds and is wanting to stop cocaine, which she has been using for the past 6.5-7 months. Pt responding to internal stimuli, believes she is in [facility] and today is a weak historian. Plan: Re-establish regime-Abilify, Invega Collateral contact [place] building Aftercare planning. 05/29/23 MVI B12 Vitamin D Trileptal 300 mg bid 05/30: Patient reports feeling fine today. Patient stated, I just want a cigarette. I'm happy I'm getting off drugs. I don't need anything else right now . denies SI/HI/VH.AH. Continue current tx plan. 05/31: Continue current plans and regimen Reason for continued inpatient stay Substantial Risk for: med/psych decompensation Time Spent With Patient Time: Total time managing care of this patient today ____ minutes.
[2023-05-31 19:57] LABS: Glucose, Whole Blood 257 mg/dL (60-115)
[2023-05-31 20:05] VITALS: BP 134/68; PULSE 85; RESP 18; TEMP 36.7; O2SAT 98
[2023-05-31] MEDS: traZODone HCL 50 MG TABLET PO (22:50)
[2023-05-31] MEDS: OLANZapine 5 MG TABLET PO (22:50)
[2023-06-01] MEDS: OLANZapine 10 MG TABLET PO (00:24)
[2023-06-01] MEDS: diphenhydrAMINE HCL 25 MG CAPSULE 50 MG PO (00:24)
[2023-06-01] MEDS: LORazepam 1 MG TABLET PO (00:24)
[2023-06-01 08:05] VITALS: BP 111/56; PULSE 66; RESP 18; TEMP 36.7; O2SAT 96
[2023-06-01] MEDS: Cholecalciferol (Vitamin D3) 10 MCG TABLET 20 MCG PO (09:18)
[2023-06-01] MEDS: metFORMIN HCl 500 MG TABLET PO ×2 (09:18→20:41)
[2023-06-01] MEDS: Paliperidone ER 3 MG TAB.ER.24 PO (09:18)
[2023-06-01] MEDS: Multivitamin TABLET 1 TAB PO (09:18)
[2023-06-01] MEDS: ARIPiprazole 5 MG TABLET PO (09:18)
[2023-06-01] MEDS: Thiamine HCL 100 MG TABLET PO (09:18)
[2023-06-01] MEDS: cefuroxime axetiL 250 MG TABLET PO ×2 (09:18→20:41)
[2023-06-01] MEDS: OXcarbazepine 300 MG TABLET PO ×2 (09:18→20:41)
[2023-06-01] MEDS: Nicotine Polacrilex 2 MG GUM 4 MG BUCCAL ×2 (09:18→14:06)
--- NOTE | 2023-06-01 10:37 | P.PNPSI_ITS ---
Subjective Subjective Date of Service: 06/01/23 Reason For Visit: Psychosis/agitation Subjective Notes: Conditional Voluntary Interim History: Patient was seen and discussed in rounds today. Records and plans were reviewed. She continues to have some auditory hallucinations. No groups attended. She has self dialogue. Eating and sleeping adequately. No complaints or side effects. No SI. No changes were made today Review of Systems Review of Systems Yes all other systems are reviewed and are negative Mental Status Exam Mental Status Exam Narrative: In today's visit she is alert, oriented and pleasant. Normal speech. Moderate eye contact. No SI. Possible auditory hallucinations. Thought processes were organized. Judgment is intact Diagnostics Vital Signs (24Hr): Vital Signs - 24 hr 05/31/23 20:05 Temperature 98.0 F Pulse Rate 85 Respiratory Rate 18 Blood Pressure 134/68 Pulse Oximetry 98 Oxygen Delivery Method Room Air BMI result Body Mass Index 28.3 Labs 05/27/23 18:37 05/27/23 18:37 Labs: Laboratory Results - last 48 hr 05/30/23 05/31/23 18:40 19:53 POC Glucose 257 H COVID-19 ([facility]) Negative COVID-19 Clin Com See Note Medications Medications Current Medications Acetaminophen (Acetaminophen 325 Mg Tablet) 650 mg PO Q6H PRN PRN Reason: Headache/Pain Mild Scale (1-3) Last Admin: 05/30/23 16:37 Dose: 650 mg Al Hydroxide/Mg Hydroxide (Magnesium Hydrox/Alum Hydrox 30 Ml Oral.Susp) 30 ml PO Q6H PRN PRN Reason: Heartburn/Nausea Aripiprazole (Aripiprazole 5 Mg Tablet) 5 mg PO DAILY [facility] Last Admin: 06/01/23 09:18 Dose: 5 mg Cefuroxime Axetil (Cefuroxime Axetil 250 Mg Tablet) 250 mg PO BID [facility] Stop: 06/03/23 09:01 Last Admin: 06/01/23 09:18 Dose: 250 mg Guaifenesin/Dextromethorphan (Guaifenesin Dm 200/20/10 Ml 10 Ml Syrup) 10 ml PO Q6H PRN PRN Reason: Cough Last Admin: 05/30/23 18:54 Dose: 10 ml Hydroxyzine HCl (Hydroxyzine Hcl 25 Mg Tablet) 25 mg PO Q6H PRN PRN Reason: Anxiety Last Admin: 05/30/23 16:38 Dose: 25 mg Magnesium Hydroxide (Milk Of Magnesia 30 Ml Oral.Susp) 30 ml PO DAILY PRN PRN Reason: Constipation Metformin HCl (Metformin Hcl 500 Mg Tablet) 500 mg PO BID [facility] Last Admin: 06/01/23 09:18 Dose: 500 mg Multivitamins/Vitamin C (Multivitamin Tablet) 1 tab PO DAILY [facility] Last Admin: 06/01/23 09:18 Dose: 1 tab Nicotine (Nicotine 21 Mg Patch.Td24) 21 mg TRANSDERMA DAILY PRN PRN Reason: smoking cessation Nicotine Polacrilex (Nicotine Polacrilex 2 Mg Gum) 4 mg BUCCAL Q2H PRN PRN Reason: Nicotine Cravings Last Admin: 06/01/23 09:18 Dose: 4 mg Olanzapine (Olanzapine 5 Mg Tablet) 5 mg PO TID PRN PRN Reason: Restlessness Last Admin: 05/31/23 22:50 Dose: 5 mg Oxcarbazepine (Oxcarbazepine 300 Mg Tablet) 300 mg PO BID [facility] Last Admin: 06/01/23 09:18 Dose: 300 mg Paliperidone (Paliperidone Er 3 Mg Tab.Er.24) 3 mg PO DAILY [facility] Last Admin: 06/01/23 09:18 Dose: 3 mg Thiamine HCl (Thiamine Hcl 100 Mg Tablet) 100 mg PO DAILY [facility] Last Admin: 06/01/23 09:18 Dose: 100 mg Trazodone HCl (Trazodone Hcl 50 Mg Tablet) 50 mg PO BEDTIME MRX1 PRN PRN Reason: Insomnia Last Admin: 05/31/23 22:50 Dose: 50 mg Vitamin D (Cholecalciferol (Vitamin D3) 10 Mcg Tablet) 20 mcg PO DAILY [facility] Last Admin: 06/01/23 09:18 Dose: 20 mcg Allergies Allergies Allergy/AdvReac Type Severity Reaction Status Date / Time penicillin V Allergy Unknown Rash Verified 05/27/23 13:26 Assessment & Plan Assessment & Plan (1) Schizoaffective disorder, bipolar type: Status: Acute Code(s): F25.0 - Schizoaffective disorder, bipolar type (2) Cocaine use disorder: Status: Acute Code(s): F14.10 - Cocaine abuse, uncomplicated (3) Type 2 diabetes mellitus: Status: Acute Code(s): E11.9 - Type 2 diabetes mellitus without complications Plan 42 yo female, hx of schizoaffective disorder, bipolar type, missing from the community for ~7 months, recently found by her son who brought her to the ER for evaluation. Pt is agreeable to re-start treatment, has a [facility] order for meds and is wanting to stop cocaine, which she has been using for the past 6.5-7 months. Pt responding to internal stimuli, believes she is in [facility] and today is a weak historian. Plan: Re-establish regime-Abilify, Invega Collateral contact [place] building Aftercare planning. 05/29/23 MVI B12 Vitamin D Trileptal 300 mg bid 05/30: Patient reports feeling fine today. Patient stated, I just want a cigarette. I'm happy I'm getting off drugs. I don't need anything else right now . denies SI/HI/VH.AH. Continue current tx plan. 05/31: Continue current plans and regimen 06/01:Continue current regimen and plans Reason for continued inpatient stay Substantial Risk for: med/psych decompensation Time Spent With Patient Time: Total time managing care of this patient today ____ minutes.
[2023-06-01] MEDS: OLANZapine 5 MG TABLET PO (14:06)
[2023-06-01 18:00] VITALS: BP 127/67; PULSE 99; RESP 16; TEMP 37.1; O2SAT 96
[2023-06-01] MEDS: hydrOXYzine HCL 25 MG TABLET PO (20:59)
[2023-06-01] MEDS: traZODone HCL 50 MG TABLET PO (20:59)
[2023-06-01] MEDS: Milk of Magnesia 30 ML ORAL.SUSP PO (21:00)
[2023-06-02] MEDS: guaiFENesin DM 200/20/10 ML 10 ML SYRUP PO ×2 (02:21→21:23)
[2023-06-02] MEDS: Acetaminophen 325 MG TABLET 650 MG PO (02:21)
[2023-06-02 08:53] LABS: Creatinine Clr Calc Pharmacy 87.8; Estimated Glomerular Filt Rate > 60
[2023-06-02 09:05] LABS: Glucose, Whole Blood 281 mg/dL (60-115)
[2023-06-02] MEDS: ARIPiprazole 5 MG TABLET PO (09:35)
[2023-06-02] MEDS: cefuroxime axetiL 250 MG TABLET PO ×2 (09:35→21:23)
[2023-06-02] MEDS: Multivitamin TABLET 1 TAB PO (09:35)
[2023-06-02] MEDS: Paliperidone ER 3 MG TAB.ER.24 PO (09:35)
[2023-06-02] MEDS: Thiamine HCL 100 MG TABLET PO (09:35)
[2023-06-02] MEDS: OXcarbazepine 300 MG TABLET PO ×2 (09:35→21:23)
[2023-06-02] MEDS: Cholecalciferol (Vitamin D3) 10 MCG TABLET 20 MCG PO (09:35)
[2023-06-02] MEDS: metFORMIN HCl 500 MG TABLET PO ×2 (09:35→21:19)
[2023-06-02] MEDS: Nicotine Polacrilex 2 MG GUM 4 MG BUCCAL ×2 (13:56→21:19)
[2023-06-02 18:30] VITALS: BP 139/70; PULSE 80; RESP 16; TEMP 36.8; O2SAT 96
--- NOTE | 2023-06-02 18:31 | P.PNPSI_ITS ---
Subjective Subjective Date of Service: 06/02/23 Reason For Visit: Psychosis/agitation Subjective Notes: Conditional Voluntary Healthcare Proxy: No Guardianship: No Medical Problems Affecting Mental Status: No Interim History: I cannot tolerate not being able to smoke You can smoke at every other hospital but this one. I want a half-way Pt discussed her concerns, believes she has leukemia and asks for labs-reports blood in her stool, nosebleeding, pain, I know it is leukemia . I have coughed up blood before . Will meet with [facility] on 06/03 States she feels this is [place] [facility] [place] due to [place] regulations. Hoping for an offer to live in a half-way situation- explained some of the current limitations we are informed of Medication Compliance: Yes Side effects from medications: No Attending Groups: No Review of Systems Acute medical concerns: No as she stated above Medical Review of Systems: unchanged Review of Systems Review of Systems Yes all other systems are reviewed and are negative (denies, however describes them) Mental Status Exam Mental Status Exam Patient Appearance: Appropriate Patient Orientation: Person, Place, Time and Situation Level of Consciousness: Alert Patient Behavior: Appropriate and Cooperative Mood Description: Blunted Affect Description: Blunted Patient Cognition Impaired: No Ability to Follow Directions: Fair Speech Pattern: Spontaneous Speech and Soft-Spoken Memory Description: Episodic Impaired Hallucinations: Auditory Delusions: Paranoid Ideation and Present Thought Process: Rumination Thought Content: positive for Perseveration Depressive Symptoms: Increased Anxiety and Increased Fatigue Judgement: Fair Diagnostics Vital Signs (24Hr): BMI result Body Mass Index 28.3 Labs 05/27/23 18:37 06/02/23 08:04 Labs: Laboratory Results - last 48 hr 05/31/23 06/02/23 06/02/23 19:53 08:04 08:56 Hold Purple Top SEE NOTE Creatinine 0.75 Estim Creat Clear Calc 87.8 Estimated GFR > 60 POC Glucose 257 H 281 H Medications Medications Current Medications Acetaminophen (Acetaminophen 325 Mg Tablet) 650 mg PO Q6H PRN PRN Reason: Headache/Pain Mild Scale (1-3) Last Admin: 06/02/23 02:21 Dose: 650 mg Al Hydroxide/Mg Hydroxide (Magnesium Hydrox/Alum Hydrox 30 Ml Oral.Susp) 30 ml PO Q6H PRN PRN Reason: Heartburn/Nausea Aripiprazole (Aripiprazole 5 Mg Tablet) 5 mg PO DAILY [facility] Last Admin: 06/02/23 09:35 Dose: 5 mg Cefuroxime Axetil (Cefuroxime Axetil 250 Mg Tablet) 250 mg PO BID [facility] Stop: 06/03/23 09:01 Last Admin: 06/02/23 09:35 Dose: 250 mg Guaifenesin/Dextromethorphan (Guaifenesin Dm 200/20/10 Ml 10 Ml Syrup) 10 ml PO Q6H PRN PRN Reason: Cough Last Admin: 06/02/23 02:21 Dose: 10 ml Hydroxyzine HCl (Hydroxyzine Hcl 25 Mg Tablet) 25 mg PO Q6H PRN PRN Reason: Anxiety Last Admin: 06/01/23 20:59 Dose: 25 mg Magnesium Hydroxide (Milk Of Magnesia 30 Ml Oral.Susp) 30 ml PO DAILY PRN PRN Reason: Constipation Last Admin: 06/01/23 21:00 Dose: 30 ml Metformin HCl (Metformin Hcl 500 Mg Tablet) 500 mg PO BID [facility] Last Admin: 06/02/23 09:35 Dose: 500 mg Multivitamins/Vitamin C (Multivitamin Tablet) 1 tab PO DAILY [facility] Last Admin: 06/02/23 09:35 Dose: 1 tab Nicotine (Nicotine 21 Mg Patch.Td24) 21 mg TRANSDERMA DAILY PRN PRN Reason: smoking cessation Nicotine Polacrilex (Nicotine Polacrilex 2 Mg Gum) 4 mg BUCCAL Q2H PRN PRN Reason: Nicotine Cravings Last Admin: 06/02/23 13:56 Dose: 4 mg Nicotine Polacrilex (Nicotine Polacrilex Lozenge 4 Mg Lozenge) 4 mg BUCCAL Q2H PRN PRN Reason: Nicotine Cravings Olanzapine (Olanzapine 5 Mg Tablet) 5 mg PO TID PRN PRN Reason: Restlessness Last Admin: 06/01/23 14:06 Dose: 5 mg Oxcarbazepine (Oxcarbazepine 300 Mg Tablet) 300 mg PO BID [facility] Last Admin: 06/02/23 09:35 Dose: 300 mg Paliperidone (Paliperidone Er 3 Mg Tab.Er.24) 3 mg PO DAILY [facility] Last Admin: 06/02/23 09:35 Dose: 3 mg Thiamine HCl (Thiamine Hcl 100 Mg Tablet) 100 mg PO DAILY [facility] Last Admin: 06/02/23 09:35 Dose: 100 mg Trazodone HCl (Trazodone Hcl 50 Mg Tablet) 50 mg PO BEDTIME MRX1 PRN PRN Reason: Insomnia Last Admin: 06/01/23 20:59 Dose: 50 mg Vitamin D (Cholecalciferol (Vitamin D3) 10 Mcg Tablet) 20 mcg PO DAILY [facility] Last Admin: 06/02/23 09:35 Dose: 20 mcg Allergies Allergies Allergy/AdvReac Type Severity Reaction Status Date / Time penicillin V Allergy Unknown Rash Verified 05/27/23 13:26 Assessment & Plan Assessment & Plan (1) Schizoaffective disorder, bipolar type: Status: Acute Code(s): F25.0 - Schizoaffective disorder, bipolar type (2) Cocaine use disorder: Status: Acute Code(s): F14.10 - Cocaine abuse, uncomplicated (3) Type 2 diabetes mellitus: Status: Acute Code(s): E11.9 - Type 2 diabetes mellitus without complications Plan 42 yo female, hx of schizoaffective disorder, bipolar type, missing from the community for ~7 months, recently found by her son who brought her to the ER for evaluation. Pt is agreeable to re-start treatment, has a [facility] order for meds and is wanting to stop cocaine, which she has been using for the past 6.5-7 months. Pt responding to internal stimuli, believes she is in [facility] and today is a weak historian. Plan: Re-establish regime-Abilify, Invega Collateral contact [place] building Aftercare planning. 05/29/23 MVI B12 Vitamin D Trileptal 300 mg bid 05/30: Patient reports feeling fine today. Patient stated, I just want a cigarette. I'm happy I'm getting off drugs. I don't need anything else right now . denies SI/HI/VH.AH. Continue current tx plan. 05/31: Continue current plans and regimen 06/01:Continue current regimen and plans 06/02: Diagnostics to address pt concerns, current values are WNL. Pt was informed. Education provided. Continue current regime. Patient educated on: therapeutic strategies Informed Consent: understands and further education needed Reason for continued inpatient stay Substantial Risk for: rapid decompensation Time Spent With Patient Time: Total time managing care of this patient today ____ minutes.
[2023-06-02] MEDS: traZODone HCL 50 MG TABLET PO (21:19)
[2023-06-02] MEDS: hydrOXYzine HCL 25 MG TABLET PO (21:19)
[2023-06-03 08:28] LABS: Glucose, Whole Blood 296 mg/dL (60-115)
[2023-06-03 08:31] LABS: INTERNATIONAL NORM RATIO 0.9 (0.9-1.1); Prothrombin Time 10.5 SEC (11.1-13.3)
[2023-06-03 08:44] LABS: Iron 112 mcg/dL (30-160); Percent Iron Saturation 36 % (15-50); Total Iron Binding Capacity 311 mcg/dL (228-428); Unsaturated Iron Binding 199 ug/dL
[2023-06-03] MEDS: metFORMIN HCl 500 MG TABLET PO ×2 (08:46→19:32)
[2023-06-03] MEDS: Multivitamin TABLET 1 TAB PO (08:46)
[2023-06-03] MEDS: Paliperidone ER 3 MG TAB.ER.24 PO (08:46)
[2023-06-03] MEDS: ARIPiprazole 5 MG TABLET PO (08:46)
[2023-06-03] MEDS: Thiamine HCL 100 MG TABLET PO (08:46)
[2023-06-03] MEDS: OXcarbazepine 300 MG TABLET PO ×2 (08:46→19:32)
[2023-06-03] MEDS: cefuroxime axetiL 250 MG TABLET PO (08:46)
[2023-06-03] MEDS: Cholecalciferol (Vitamin D3) 10 MCG TABLET 20 MCG PO (08:46)
[2023-06-03 09:01] LABS: Thyroid Stimulating Hormone 3.31 uIU/mL (0.32-4.0)
[2023-06-03 09:14] LABS: Folate 7.9 ng/mL (> or = 4.0); Vitamin B12 455 pg/mL (200-900)
[2023-06-03 10:38] VITALS: BP 124/69; PULSE 90; RESP 16; TEMP 37; O2SAT 98
[2023-06-03 18:00] VITALS: BP 129/69; PULSE 91; TEMP 36.8; O2SAT 96
[2023-06-03] MEDS: guaiFENesin DM 200/20/10 ML 10 ML SYRUP PO (19:32)
[2023-06-03] MEDS: Acetaminophen 325 MG TABLET 650 MG PO (19:32)
[2023-06-03] MEDS: Nicotine Polacrilex 2 MG GUM 4 MG BUCCAL (23:58)
[2023-06-03] MEDS: traZODone HCL 50 MG TABLET PO (23:58)
[2023-06-03] MEDS: OLANZapine 5 MG TABLET PO (23:58)
[2023-06-04 08:00] VITALS: BP 119/64; PULSE 76; RESP 16; TEMP 36.1; O2SAT 98
[2023-06-04 08:11] LABS: Glucose, Whole Blood 237 mg/dL (60-115)
[2023-06-04] MEDS: Multivitamin TABLET 1 TAB PO (08:18)
[2023-06-04] MEDS: metFORMIN HCl 500 MG TABLET PO ×2 (08:18→21:16)
[2023-06-04] MEDS: Thiamine HCL 100 MG TABLET PO (08:18)
[2023-06-04] MEDS: ARIPiprazole 5 MG TABLET PO (08:18)
[2023-06-04] MEDS: OXcarbazepine 300 MG TABLET PO ×2 (08:18→21:16)
[2023-06-04] MEDS: Cholecalciferol (Vitamin D3) 10 MCG TABLET 20 MCG PO (08:18)
[2023-06-04] MEDS: Paliperidone ER 3 MG TAB.ER.24 PO (08:18)
[2023-06-04] MEDS: Nicotine Polacrilex 2 MG GUM 4 MG BUCCAL ×2 (08:21→18:43)
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
--- NOTE | 2023-06-04 14:36 | HO.PSYCHPN ---
Subjective Subjective Date of Service: 06/04/23 Reason For Visit: Psychosis/agitation Subjective Notes: 3 Day Healthcare Proxy: No Guardianship: No Medical Problems Affecting Mental Status: No Interim History: Three day notice to 06/05. Pt declines to remain in patient for further time. She reports she wants to smoke and does not like the hospital. Pt met with her Aki's guardian today, Nelly Sepulveda. Family visited and did bring in clothing for pt. Pt expressing anger with [facility] as she was expecting to be assigned a senior care however she was told that there is currently no availability. We will complete paperwork for Aki's update prior to pt's discharge. Medication Compliance: Yes Side effects from medications: No Attending Groups: Intermittent Review of Systems Acute medical concerns: No Medical Review of Systems: unchanged Review of Systems Review of Systems Yes all other systems are reviewed and are negative Mental Status Exam Mental Status Exam Patient Appearance: Appropriate Patient Orientation: Person, Place, Time and Situation Level of Consciousness: Alert Patient Behavior: Appropriate and Cooperative Mood Description: Blunted Affect Description: Blunted Patient Cognition Impaired: No Ability to Follow Directions: Fair Speech Pattern: Spontaneous Speech and Soft-Spoken Memory Description: Episodic Impaired Hallucinations: Auditory Delusions: Paranoid Ideation and Present Thought Process: Rumination Thought Content: positive for Perseveration Depressive Symptoms: Increased Anxiety Judgement: Fair Diagnostics Vital Signs (24Hr): Vital Signs - 24 hr 06/03/23 18:00 06/04/23 08:00 Temperature 98.2 F 96.9 F Pulse Rate 91 76 Respiratory Rate 16 Blood Pressure 129/69 119/64 Pulse Oximetry 96 98 Oxygen Delivery Method Room Air Room Air BMI result Body Mass Index 28.3 Labs 05/27/23 18:37 06/02/23 08:04 Labs: Laboratory Results - last 48 hr 06/03/23 06/03/23 06/04/23 07:53 08:23 07:57 PT 10.5 L INR 0.9 POC Glucose 296 H 237 H Iron 112 TIBC 311 % Saturation 36 Unsat Iron Binding 199 Vitamin B12 455 Folate 7.9 TSH 3.31 Medications Medications Current Medications Acetaminophen (Acetaminophen 325 Mg Tablet) 650 mg PO Q6H PRN PRN Reason: Headache/Pain Mild Scale (1-3) Last Admin: 06/03/23 19:32 Dose: 650 mg Al Hydroxide/Mg Hydroxide (Magnesium Hydrox/Alum Hydrox 30 Ml Oral.Susp) 30 ml PO Q6H PRN PRN Reason: Heartburn/Nausea Aripiprazole (Aripiprazole 5 Mg Tablet) 5 mg PO DAILY [facility] Last Admin: 06/04/23 08:18 Dose: 5 mg Guaifenesin/Dextromethorphan (Guaifenesin Dm 200/20/10 Ml 10 Ml Syrup) 10 ml PO Q6H PRN PRN Reason: Cough Last Admin: 06/03/23 19:32 Dose: 10 ml Hydroxyzine HCl (Hydroxyzine Hcl 25 Mg Tablet) 25 mg PO Q6H PRN PRN Reason: Anxiety Last Admin: 06/02/23 21:19 Dose: 25 mg Magnesium Hydroxide (Milk Of Magnesia 30 Ml Oral.Susp) 30 ml PO DAILY PRN PRN Reason: Constipation Last Admin: 06/01/23 21:00 Dose: 30 ml Metformin HCl (Metformin Hcl 500 Mg Tablet) 500 mg PO BID [facility] Last Admin: 06/04/23 08:18 Dose: 500 mg Multivitamins/Vitamin C (Multivitamin Tablet) 1 tab PO DAILY [facility] Last Admin: 06/04/23 08:18 Dose: 1 tab Nicotine (Nicotine 21 Mg Patch.Td24) 21 mg TRANSDERMA DAILY PRN PRN Reason: smoking cessation Nicotine Polacrilex (Nicotine Polacrilex 2 Mg Gum) 4 mg BUCCAL Q2H PRN PRN Reason: Nicotine Cravings Last Admin: 06/04/23 08:21 Dose: 4 mg Nicotine Polacrilex (Nicotine Polacrilex Lozenge 4 Mg Lozenge) 4 mg BUCCAL Q2H PRN PRN Reason: Nicotine Cravings Olanzapine (Olanzapine 5 Mg Tablet) 5 mg PO TID PRN PRN Reason: Restlessness Last Admin: 06/03/23 23:58 Dose: 5 mg Oxcarbazepine (Oxcarbazepine 300 Mg Tablet) 300 mg PO BID [facility] Last Admin: 06/04/23 08:18 Dose: 300 mg Paliperidone (Paliperidone Er 3 Mg Tab.Er.24) 3 mg PO DAILY [facility] Last Admin: 06/04/23 08:18 Dose: 3 mg Thiamine HCl (Thiamine Hcl 100 Mg Tablet) 100 mg PO DAILY [facility] Last Admin: 06/04/23 08:18 Dose: 100 mg Trazodone HCl (Trazodone Hcl 50 Mg Tablet) 50 mg PO BEDTIME MRX1 PRN PRN Reason: Insomnia Last Admin: 06/03/23 23:58 Dose: 50 mg Vitamin D (Cholecalciferol (Vitamin D3) 10 Mcg Tablet) 20 mcg PO DAILY [facility] Last Admin: 06/04/23 08:18 Dose: 20 mcg Allergies Allergies Allergy/AdvReac Type Severity Reaction Status Date / Time penicillin V Allergy Unknown Rash Verified 05/27/23 13:26 Assessment & Plan Assessment & Plan (1) Schizoaffective disorder, bipolar type: Status: Acute Code(s): F25.0 - Schizoaffective disorder, bipolar type (2) Cocaine use disorder: Status: Acute Code(s): F14.10 - Cocaine abuse, uncomplicated (3) Type 2 diabetes mellitus: Status: Acute Code(s): E11.9 - Type 2 diabetes mellitus without complications Plan 42 yo female, hx of schizoaffective disorder, bipolar type, missing from the community for ~7 months, recently found by her son who brought her to the ER for evaluation. Pt is agreeable to re-start treatment, has a [facility] order for meds and is wanting to stop cocaine, which she has been using for the past 6.5-7 months. Pt responding to internal stimuli, believes she is in [facility] and today is a weak historian. Plan: Re-establish regime-Abilify, Invega Collateral contact [place] building Aftercare planning. 05/29/23 MVI B12 Vitamin D Trileptal 300 mg bid 05/30: Patient reports feeling fine today. Patient stated, I just want a cigarette. I'm happy I'm getting off drugs. I don't need anything else right now . denies SI/HI/VH.AH. Continue current tx plan. 05/31: Continue current plans and regimen 06/01:Continue current regimen and plans 06/02: Diagnostics to address pt concerns Continue current regime. 06/04/23 Increase Abilify to 10 mg daily Increase Invega to 6 mg daily Pt in agreement. Plans discharge on a three day notice 06/05. Patient educated on: therapeutic strategies and other Informed Consent: further education needed Reason for continued inpatient stay Substantial Risk for: rapid decompensation Time Spent With Patient Time: Total time managing care of this patient today ____ minutes.
--- NOTE | 2023-06-04 16:35 | PC.NURSE ---
I assumed care of this patient at 15:30, pt in currently pacing hallways and appears to be responding ot internal stimuli, in no apparent distress, respirations even and unlabored. Plan of care ongoing.
[2023-06-04 18:00] VITALS: BP 132/71; PULSE 79; RESP 16; TEMP 36.3; O2SAT 100
[2023-06-04 20:00] VITALS: BP 124/89; PULSE 85; RESP 18; TEMP 36.9; O2SAT 95
[2023-06-04] MEDS: traZODone HCL 50 MG TABLET PO (21:20)
[2023-06-05] MEDS: Nicotine Polacrilex 2 MG GUM 4 MG BUCCAL (04:04)
[2023-06-05 06:00] VITALS: BP 117/58; PULSE 87; RESP 16; TEMP 36.5; O2SAT 96
[2023-06-05 08:33] LABS: Glucose, Whole Blood 271 mg/dL (60-115)
[2023-06-05] MEDS: Cholecalciferol (Vitamin D3) 10 MCG TABLET 20 MCG PO (08:41)
[2023-06-05] MEDS: Paliperidone ER 6 MG TAB.ER.24 PO (08:41)
[2023-06-05] MEDS: ARIPiprazole 10 MG TABLET PO (08:41)
[2023-06-05] MEDS: OXcarbazepine 300 MG TABLET PO (08:41)
[2023-06-05] MEDS: metFORMIN HCl 500 MG TABLET PO (08:41)
[2023-06-05] MEDS: Multivitamin TABLET 1 TAB PO (08:42)
[2023-06-05] MEDS: Thiamine HCL 100 MG TABLET PO (08:42)
--- NOTE | 2023-06-07 13:11 | P.DS_ITS ---
DS: Providers Provider Date of Service: 06/05/23 Date of admission: 05/28/23 00:34 Date of discharge: 06/05/23 Primary care physician: Unknown Physician Admitting clinician: Sonia Song Attending physician on admission: Damián Bender Attending physician on discharge: Damián Bender Discharging clinician: Sonia Song DS: Diagnosis Discharge Diagnosis (1) Schizoaffective disorder, bipolar type: Status: Acute (2) Cocaine use disorder: Status: Acute (3) Type 2 diabetes mellitus: Status: Acute DS: Medications Discharge Medications Home Medications: Home Medications Medication Instructions Recorded Confirmed No Known Home Meds 05/27/23 05/27/23 Previous Rx's Medication Instructions Recorded aripiprazole 10 mg tablet 10 mg PO DAILY #30 tabs 06/04/23 cholecalciferol (vitamin D3) 10 20 mcg (2 x 10 mcg (400 unit)) PO 06/04/23 mcg (400 unit) tablet (Vitamin D3) DAILY #30 tabs metformin 500 mg tablet 500 mg PO BID #60 tabs 06/04/23 multivitamin (Daily-Mary Kate tablet) 1 tab PO DAILY #30 tabs 06/04/23 oxcarbazepine 300 mg tablet 300 mg PO BID #60 tabs 06/04/23 paliperidone 6 mg tablet,extended 6 mg PO DAILY #30 tabs 06/04/23 release 24 hr (Invega) thiamine mononitrate (vit B1) 100 100 mg PO DAILY #30 tabs 06/04/23 mg tablet trazodone 50 mg tablet 50 mg PO BEDTIME MRX1 PRN Insomnia 06/04/23 #30 tabs Mental Status Exam Mental Status Exam Patient Appearance: Appropriate Patient Orientation: Person, Place, Time and Situation Level of Consciousness: Alert Patient Behavior: Appropriate and Cooperative Mood Description: Blunted Affect Description: Blunted Patient Cognition Impaired: No Ability to Follow Directions: Fair Speech Pattern: Spontaneous Speech and Soft-Spoken Memory Description: Episodic Impaired Hallucinations: Auditory Delusions: Paranoid Ideation and Present Thought Process: Rumination Thought Content: positive for Perseveration Depressive Symptoms: Increased Anxiety Judgement: Fair Data Data Completed and Pending Completed studies during hospitalization [Text1]: 05/31/23 06/02/23 06/02/23 19:53 08:04 08:56 Hold Purple Top SEE NOTE PT INR Creatinine 0.75 Estim Creat Clear Calc 87.8 Estimated GFR > 60 POC Glucose 257 H 281 H Iron TIBC % Saturation Unsat Iron Binding Vitamin B12 Folate TSH 06/03/23 06/03/23 06/04/23 07:53 08:23 07:57 Hold Purple Top PT 10.5 L INR 0.9 Creatinine Estim Creat Clear Calc Estimated GFR POC Glucose 296 H 237 H Iron 112 TIBC 311 % Saturation 36 Unsat Iron Binding 199 Vitamin B12 455 Folate 7.9 TSH 3.31 06/05/23 08:28 Hold Purple Top PT INR Creatinine Estim Creat Clear Calc Estimated GFR POC Glucose 271 H Iron TIBC % Saturation Unsat Iron Binding Vitamin B12 Folate TSH 05/27/23 Unknown Urine clean catch - Urine concepcion top Urine Culture - Final DS: Summary Hospital Course Hospital Course: Admission to adult psychiatry with exacerbation of schizoaffective disorder, bipolar type, cocaine use disorder, DM2. Pt presented with sx of psychosis and in withdrawal. She and family reports she has been out of contact and on the street for approximately seven months. Medications were evaluated and initiated. Pt is under Aki's guardianship and her plan was followed. She did videoconference with her Aki's guardian. She was offered full milieu treatment. She filed a three day notice and left as she could not tolerate not being able to smoke cigarettes. She accepted prescriptions, out pt appointments and plans to live with a friend. She is aware she is welcome to return if she is in need of emergent assistance. Time spent discussing smoking cessation with patient: more than 10 minutes Status at Discharge Functional status at discharge: independent ambulation Overall status at discharge: patient is progressing back to baseline Time Spent with Patient Time attestation: Total time managing care of this patient today ____ minutes. Time spent: Greater than 30 minutes Discharge Plan Discharge Anticipated Discharge Date/Time: 06/05/23 12:00 Patient Disposition: Xfer Other Discharge Diagnosis: Schizoaffective Disorder, Bipolar Type Cocaine Use Disorder DM2 Referrals: [facility] [Other] - 07/10/23 2:00 pm (IN OFFICE WITH ) [facility] w [facility] Moon [Other] - 06/24/23 2:30 pm [facility] Intake for Therapy [facility] [Other] - 06/12/23 10:00 am Discharge Medications: New metformin 500 mg Tablet 500 mg PO BID Qty: 60 0RF trazodone 50 mg Tablet 50 mg PO BEDTIME MRX1 PRN (Reason: Insomnia) Qty: 30 0RF oxcarbazepine 300 mg Tablet 300 mg PO BID Qty: 60 0RF cholecalciferol (vitamin D3) [Vitamin D3] 10 mcg (400 unit) Tablet 20 mcg PO DAILY Qty: 30 0RF aripiprazole 10 mg Tablet 10 mg PO DAILY Qty: 30 0RF paliperidone [Invega] 6 mg Tablet Extended Release 24 Hr 6 mg PO DAILY Qty: 30 0RF multivitamin [Daily-Mary Kate] Tablet 1 tab PO DAILY Qty: 30 0RF thiamine mononitrate (vit B1) 100 mg Tablet 100 mg PO DAILY Qty: 30 0RF No Action No Known Home Meds Discharge Orders: Discharge Order (Routine); Ordered 06/04/23 Ordered By: Sonia Song Diet: Diabetic diet Activity on Discharge: As tolerated Stand Alone Forms: Patient Portal Discharge page, Community Support Care Plan Goals: Mood and Behavioral Stabilization Sobriety Management of blood sugar Health Concerns: Mood and Behavioral Stabilization Sobriety Diabetes Plan of Treatment: Attend scheduled appointments Take medications as directed Call and/or return as needed Assessment: Pt leaves today on a three day notice of intent Discharge Date/Time: 06/05/23 09:30
== END 2023-06-05 09:30 | disposition other institution (70) | DRG 885 ==
LOC: HO.ED 05-28 → HO.PM5 05-28 00:46
PROVIDERS: Nurse Practitioner Family; Psychiatry & Neurology Psychiatry; Admitting Provider Psychiatry & Neurology Psychiatry; Emergency Provider Student in an Organized Health Care Education/Training Program; Visit Provider Clinical Nurse Specialist Psychiatric/Mental Health, Adult
DX: F25.0 Schizoaffective disorder, bipolar type (principal); F17.210 Nicotine dependence, cigarettes, uncomplicated; E11.9 Type 2 diabetes mellitus without complications; F14.10 Cocaine abuse, uncomplicated; Z71.6 Tobacco abuse counseling; Z20.822 Contact with and (suspected) exposure to COVID-19; Z91.148 Patient's other noncompliance with medication regimen for other reason; Z79.84 Long term (current) use of oral hypoglycemic drugs; Z79.899 Other long term (current) drug therapy
CPT/HCPCS: 36415; 80053; 80061; 80143; 80179; 80307; 81001; 81025; 82565; 82607; 82746; 82947; 83036; 83540; 84443; 85025; 85610; 87086; 87635; 93005; 99285; S9485

== ENCOUNTER → 2023-05-27 20:47 | Outpatient (BNV) | payer OTHER, SELFPAY | PROVIDERS: Admitting Provider Psychiatry & Neurology Psychiatry; Emergency Provider Student in an Organized Health Care Education/Training Program; Visit Provider Internal Medicine | DX: R00.1 Bradycardia, unspecified (principal) | CPT/HCPCS: 93010 ==

== ENCOUNTER → 2023-05-28 00:34 | Outpatient (BNV) | payer OTHER, SELFPAY | PROVIDERS: Admitting Provider Psychiatry & Neurology Psychiatry; Emergency Provider Student in an Organized Health Care Education/Training Program; Visit Provider Clinical Nurse Specialist Psychiatric/Mental Health, Adult | DX: F25.0 Schizoaffective disorder, bipolar type (principal); F14.10 Cocaine abuse, uncomplicated; E11.9 Type 2 diabetes mellitus without complications | CPT/HCPCS: 90792; 99231; 99232; 99239 ==